=== PATIENT | female | born 1970 ===

== ENCOUNTER 2023-04-15 10:33 | Outpatient (AMB) | payer BC, SELFPAY ==
--- NOTE | 2023-04-15 10:34 | A.OFFVIS_ITS ---
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 Previous patient of Dr. Null. Patient reports ongoing pain for many years and it has gotten worse since last year. The patient was seen by Dr. López from Neurosurgery regarding neck pain. No surgery was recommended. The patient is going to start using a home traction device. She describes her right shoulder pain as sharp and severe in nature. She denies any weakness. She has done physical therapy which aggravated her pain. She has also had injections in the past which gave her minimal relief. She has tried Tylenol and anti-inflammatory medicines which gave her only mild relief. Allergies No Known Allergies Allergy (Verified 04/15/23 10:40) Medication List - Last Reconciled 04/15/23 by Hiram Null MD escitalopram oxalate 20 mg PO DAILY [facility] Social History (Updated 04/15/23 @ 10:41 by Clare Juan) Alcohol intake: never Patient Tobacco Use Status: Never used Tobacco Current occupation: right hand dominant Physical Exam Vital Signs: BMI result Body Mass Index 20.6 Const Other: Well-nourished well-developed very friendly female awake alert and oriented x3 in no acute distress Extrem Other: Bilateral upper extremity examination shows good capillary refill, no skin lesions noted, normal sensation light touch Right shoulder examination shows decreased active and passive range of motion when compared to her left shoulder, positive impingement signs, tenderness over her acromioclavicular joint, no instability Results Reviewed Results Reviewed: X-rays of the patient's right shoulder show severe acromioclavicular joint narrowing, a type 3 acromion, no acute bony abnormalities MRI of the patient's right shoulder shows severe acromioclavicular joint narrowing, type 3 acromion, signal change within the supraspinatus tendon most likely due to adhesive capsulitis Assessment & Plan Assessment & Plan (1) Impingement of right shoulder: Code(s): M25.811 - Other specified joint disorders, right shoulder Plan Ms. Disla presents with progressively worsening right shoulder pain and stiffness due to impingement syndrome, acromioclavicular joint arthritis and his capsulitis. I had a lengthy discussion with the patient regarding the treatment options. At this point she has failed continued non operative treatments. The risks and benefits of right shoulder surgery were discussed at length with the patient. The patient wishes proceed. Surgery will most likely involve right shoulder diagnostic arthroscopy with distal clavicle excision, acromioplasty, anterior capsular release and manipulation under anesthesia. Patient will contact my office to pick a surgery date. She will continue with her home stretching program in the meantime to prevent further stiffness. Feel free to call me at any time should questions regarding her orthopedic management arise. I spent 22 minutes in reviewing the patient's records and imaging studies, seeing the patient and documenting in the medical record. Coding Level of Care Code Est Pt Level 2 (68691) Diagnoses Impingement of right shoulder M25.811
[2023-04-15 10:39] VITALS: BMI 20.6
== END 2023-04-15 11:15 | disposition home or self-care (01) ==
LOC: HO.HOS 10:33
PROVIDERS: PCP Internal Medicine; Visit Provider Orthopaedic Surgery
DX: M25.811 Other specified joint disorders, right shoulder (principal)
CPT/HCPCS: 99212

== ENCOUNTER → 2023-04-15 10:33 | Outpatient (BNVA) | payer BC, SELFPAY | PROVIDERS: PCP Internal Medicine; Visit Provider Orthopaedic Surgery ==

== ENCOUNTER 2023-05-28 07:46 | Outpatient (REF) | payer BC, SELFPAY ==
--- NOTE | ~2023-05-28 | XR_ITS ---
EXAMINATION: XR SHOULDER, RIGHT CLINICAL INFORMATION: Other specified shoulder disorders. COMPARISON: None available. TECHNIQUE: AP neutral and scapula Y views of the right shoulder are submitted. FINDINGS: The bones and soft tissues are normal. No fracture. Glenohumeral and acromioclavicular alignment is anatomic with normal joint space. No abnormal soft tissue calcifications. XR/XR shoulder RT min 2V IMPRESSION: Normal right shoulder.
== END 2023-05-28 07:47 | disposition home or self-care (01) ==
LOC: HO.HOSX 07:46
PROVIDERS: Visit Provider Orthopaedic Surgery
DX: M25.811 Other specified joint disorders, right shoulder (principal)
CPT/HCPCS: 73030

== ENCOUNTER 2023-05-28 09:28 | Outpatient (AMB) | payer BC, SELFPAY ==
--- NOTE | 2023-05-28 09:31 | MHC.OFFVIS ---
Intake Intake Visit Reasons: Pre-Rt Shoulder Intake Note: Vivienne is a 52 year old right hand dominant female who presents today for evaluation of the right shoulder. Previous patient of Dr. Null. Patient reports ongoing pain for many years and it has gotten worse since last year. The patient was seen by Dr. López from Neurosurgery regarding neck pain. No surgery was recommended. The patient is going to start using a home traction device. She describes her right shoulder pain as sharp and severe in nature. She denies any weakness. She has done physical therapy which aggravated her pain. She has also had injections in the past which gave her minimal relief. She has tried Tylenol and anti-inflammatory medicines which gave her only mild relief. Allergies No Known Allergies Allergy (Verified 05/28/23 09:36) Medication List - Last Reconciled 05/28/23 by Hiram Null MD escitalopram oxalate 20 mg PO DAILY [id number]-pbdqyzc 25,000-79,000- 105,000 unit (Zenpep) 1 cap PO QID PFSH Social History Alcohol intake: never Patient Tobacco Use Status: Never used Tobacco Current occupation: right hand dominant Physical Exam Const Other: Well-nourished well-developed very friendly female awake alert and oriented x3 in no acute distress Lungs clear to auscultation bilaterally with symmetric expansion Cardiovascular exam regular rate rhythm Abdominal exam is soft nontender nondistended Extrem Other: Bilateral upper extremity examination shows good capillary refill, no skin lesions noted, normal sensation light touch Right shoulder examination shows decreased range of motion when compared to her left shoulder, pain with range of motion, positive impingement signs, 5/5 strength with supraspinatus testing, tenderness over her acromioclavicular joint, no instability Results Reviewed Results Reviewed: X-rays of the patient's right shoulder show severe acromioclavicular joint narrowing, a type 2 acromion, no acute bony abnormalities Assessment & Plan Assessment & Plan (1) Impingement of right shoulder: Code(s): M25.811 - Other specified joint disorders, right shoulder Plan: Ms. Shannon presents with right shoulder pain and stiffness due to impingement syndrome, acromioclavicular joint arthritis and adhesive capsulitis. I had a lengthy discussion with the patient regarding the treatment options. At this point she has failed continued non operative treatments. The risks and benefits of right shoulder surgery were discussed at length with the patient. The patient wishes to proceed with surgery. Surgery will most likely involve right shoulder diagnostic arthroscopy with distal clavicle excision, acromioplasty, capsular release and manipulation under anesthesia. The patient was given a prescription for Vicodin at her preoperative appointment. I will see her back 2-3 weeks following her surgery for her 1st postoperative appointment. Feel free to call me at any time should questions regarding her orthopedic management arise. I spent 22 minutes in reviewing the patient's records and imaging studies, seeing the patient and documenting in the medical record. Orders: Orders XR shoulder RT min 2V Today M25.811 - Other specified joint disorders, right shoulder Medications: New hydrocodone-acetaminophen 5-300 mg Partial Fill upon patient request. 1 - 2 tabs PO Q4H PRN 40 tabs 0RF pain Coding Level of Care Code Est Pt Level 2 (36801) Diagnoses Impingement of right shoulder M25.811
== END 2023-05-28 10:03 | disposition home or self-care (01) ==
LOC: HO.HOS 09:28
PROVIDERS: PCP Internal Medicine; Visit Provider Orthopaedic Surgery
DX: M25.811 Other specified joint disorders, right shoulder (principal)
CPT/HCPCS: 99212

== ENCOUNTER 2023-06-05 09:48 | Day surgery (SDC) | payer BC, SELFPAY ==
[2023-06-05] VITALS (9 sets, daily range): BP systolic 98–123; BP diastolic 50–82; PULSE 45–55; RESP 14–18; TEMP 36.1–36.8; O2SAT 96–98; BMI 21.5
--- NOTE | 2023-06-05 10:45 | HO.ANESPROP2 ---
HPI - Anesthesia Eval Consult details Narrative: shoulder arthroscopy PMFSH Active Problems Active Problems: All Active Problems (Updated 06/05/23 @ 10:09 by Abbie Carroll) Impingement of right shoulder (Acute) Past Medical History Medical History (Updated 06/05/23 @ 10:09 by Abbie Carroll) Bradycardia Family History Family history of problems with anesthesia: No Surgical History Surgical History (Updated 06/05/23 @ 10:08 by Abbie Carroll) Previous section H/O discectomy H/O knee surgery History of Problems with Anesthesia: No Social History Social History Alcohol intake: never Patient Tobacco Use Status: Never used Tobacco Use of substances other than those prescribed or required for medical reasons: No Are you DNR?: No Advance Directives: No Advance Directives Information Provided: Yes Current occupation: right hand dominant Meds Allergies Allergy/AdvReac Type Severity Reaction Status Date / Time No Known Allergies Allergy Verified 06/05/23 10:06 Home Medications Medication Instructions Recorded Confirmed Last Taken Type escitalopram oxalate 20 mg tablet 20 mg PO DAILY 04/15/23 06/05/23 06/05/23 History [id number] 1 cap PO QID 05/28/23 06/05/23 Unknown History 25,000-79,000-105,000 unit capsule,delayed rel (Zenpep) Exam Exam Date and Time: June 05, 2023 1045 Height,Weight and Vital Signs: Height 5 ft 4 in Weight 56.699 kg Last Vital Signs Temp 98.2 F 06/05/23 10:26 Pulse 53 06/05/23 10:26 Resp 14 06/05/23 10:26 BP 112/77 06/05/23 10:26 Pulse Ox 98 06/05/23 10:26 O2 Del Method Room Air 06/05/23 10:26 Airway Mallampati Class: II TM Dist: >3cm Heart: rrr Lungs: cta Assessment and Plan Assessment Anesthesia Assessment: Anesthesia Plan Discussed and Chart Reviewed Final Anesthetic Review Family History of Problems with Anesthesia: No History of Problems with Anesthesia: No NPO: Yes ASA Class: II Final Preanesthetic Review: No Changes in Pt Med Stat, Meds/Allgs Chart Reviewed, Consent Obtained/Reviewed and Anes Risks/Benef Reviewed Patient Risk: Low Procedure Risk: Intermediate Anesthetic Plan Anesthetic Plan: GA, Regional Block and Agree w/ Assess. and Plan Disposition: Standard PACU
--- NOTE | 2023-06-05 13:48 | PM.OP ---
Brief Operative Note Date of Service: 06/05/23 Pre-op diagnosis: Right shoulder acromioclavicular joint arthritis, right shoulder impingement syndrome, right shoulder adhesive capsulitis Post-op diagnosis: same Procedure: right shoulder diagnostic arthroscopy with arthroscopic distal clavicle excision, acromioplasty, anterior capsular release, manipulation under anesthesia Implants: none Surgeon: Hiram Null MD Anesthesia: GLMA and regional Was an Defensive Secondary Coach used for this Procedure?: No Estimated blood loss (mL): 10 Pathology: none sent Condition: stable Disposition: PACU
--- NOTE | 2023-06-05 13:49 | W.PM.OPN ---
Operative Note Operative Note Date of Service: 06/05/23 Narrative: After the patient was identified as Vivienne Shannon and their right shoulder was initialed by myself the patient was brought to the holding area where a right shoulder interscalene regional block was performed by the anesthesiologist in routine fashion. The patient was then brought to the operating room where general anesthesia was induced by the anesthesiologist in routine fashion. The patient was given 2 g of IV Ancef preoperatively for infection prophylaxis. Examination under anesthesia of the patient's right shoulder showed decreased passive range of motion when compared to the left shoulder. The patient's right shoulder had passive forward flexion to 130 degrees compared to 170 degrees, external rotation to 30 degrees compared to 60 degrees, and internal rotation to 40 degrees compared to 50 degrees. The patient was gently positioned in the beach chair position with all bony prominences well padded. The patient's right shoulder region and upper extremity were prepped and draped in sterile fashion. A formal time-out was completed. A #11 scalpel blade was used to make a posterior portal 2 cm inferior and 1 cm medial to the posterolateral corner of the acromion. Blunt trocar technique was used to enter the glenohumeral joint in routine fashion. An anterior portal was made just lateral to the coracoid process after proper positioning was confirmed using a spinal needle. Diagnostic arthroscopy showed minimal degenerative changes of the glenoid and humeral head articular surfaces. There was no evidence of rotator cuff tearing. There was no evidence of injury to the biceps tendon or its insertion onto the glenoid. There was inflammation of the anterior joint capsule consistent with adhesive capsulitis. The ArthroCare Wand was then used to perform an anterior capsular release between the inferior border of the biceps tendon and the superior border of the subscapularis tendon. The arthroscope was then placed from the posterior portal into the subacromial space. A lateral portal was made 2 fingerbreadths lateral to the anterior lateral corner of the acromion. The ArthroCare Wand was used to ablate soft tissues along the undersurface of the acromion as well as to excise the coracoacromial ligament. There was a sharp spur along the undersurface of the acromion which was removed using the hooded bur. The arthroscope was then placed into the lateral portal and the acromioplasty was completed with the bur in the posterior portal using the posterior aspect of the acromion as a cutting block. The ArthroCare Wand was then brought in through the anterior portal and was used to ablate soft tissues along the acromioclavicular joint and distal clavicle. The posterior and superior ligamentous structures were left intact. A distal clavicle excision of 8 mm was performed using the fluted bur. Any remaining bursal tissue was removed using the arthroscopic shaver. The subacromial space was irrigated and then drained. All arthroscopic instruments were removed. A gentle manipulation under anesthesia was then performed. Full passive range of motion was easily obtained. The 3 portals were closed with 3-0 nylon interrupted suture. The subacromial space was injected with Marcaine. Dry sterile dressing was placed over all incisions. The patient's right upper extremity was placed into a sling. The patient was awoken and extubated in the operating room. The patient was transferred to the recovery room in stable condition.
== END 2023-06-05 15:43 | disposition home or self-care (01) ==
LOC: HO.SSS 09:49
PROVIDERS: PCP Internal Medicine; Visit Provider Orthopaedic Surgery
PROC: (CPT 29805; principal; 2023-06-05 11:20)
DX: M75.41 Impingement syndrome of right shoulder (principal); M75.01 Adhesive capsulitis of right shoulder; M19.011 Primary osteoarthritis, right shoulder; M25.811 Other specified joint disorders, right shoulder; Z79.899 Other long term (current) drug therapy
CPT/HCPCS: 29824; 29825; 29822; J0131; J0690; J0696; J1100; J1790; J1885; J2405

== ENCOUNTER → 2023-06-05 09:48 | Outpatient (BNV) | payer BC, SELFPAY | PROVIDERS: PCP Internal Medicine; Visit Provider Orthopaedic Surgery | DX: M75.31 Calcific tendinitis of right shoulder (principal); M19.011 Primary osteoarthritis, right shoulder | CPT/HCPCS: 29824; 29825 ==

== ENCOUNTER 2023-06-18 11:14 | Outpatient (AMB) | payer BC, SELFPAY ==
--- NOTE | 2023-06-18 11:23 | MHC.OFFVIS ---
Intake Intake Visit Reasons: PO-Rt Shld 06/05 DR Intake Note: Vivienne 52 yr old right hand dominant female presents today for her P/O visit for right shoulder sx from 06/05/[address] Null. Patient states she removed her dressing at home and is doing well. She is no longer taking Vicodin. She takes ibuprofen gives her fairly good relief. She has been doing gentle range of motion exercises on her own. Allergies No Known Allergies Allergy (Verified 06/18/23 11:28) Medication List - Last Reconciled 06/18/23 by Hiram Null MD escitalopram oxalate 20 mg PO DAILY [id number]-[id number]-faqutrw 25,000-79,000- 105,000 unit (Zenpep) 1 cap PO QID oxycodone ER (OxyContin) 10 mg PO Q12H PFSH Medical History (Updated 06/18/23 @ 11:47 by Hiram Null MD) Bradycardia Surgical History (Updated 06/05/23 @ 10:08 by Abbie Carroll) Previous section H/O discectomy H/O knee surgery Social History Alcohol intake: never Patient Tobacco Use Status: Never used Tobacco Current occupation: right hand dominant Physical Exam Extrem Other: Right shoulder examination shows incisions are healing well, no erythema, slightly decreased range of motion when compared to her left shoulder, minimal discomfort with resisted forward flexion Assessment & Plan Assessment & Plan (1) Right shoulder pain: Code(s): M25.511 - Pain in right shoulder Plan: Mrs. Shannon is doing well after undergoing right shoulder arthroscopic surgery on 06/05/2023. Her sutures were removed and Steri-Strips placed over her incisions. I did give her a prescription to go to formal physical therapy for range of motion exercises with gradual progression to gentle strengthening exercises. The do's and don'ts of lifting were discussed at length with the patient. She will contact me prior to her follow-up appointment in 6 weeks should any questions or concerns arise. Feel free to call me at any time should questions regarding her orthopedic management arise. Orders: Orders PT Evaluation and Treatment Today M25.511 - Pain in right shoulder Coding Level of Care Code Global (49107) Diagnoses Right shoulder pain M25.511
== END 2023-06-18 11:55 | disposition home or self-care (01) ==
PROVIDERS: PCP Internal Medicine; Visit Provider Orthopaedic Surgery
DX: M25.511 Pain in right shoulder (principal)
CPT/HCPCS: 99024

== ENCOUNTER → 2023-06-18 11:14 | Outpatient (BNVA) | payer BC, SELFPAY | PROVIDERS: PCP Internal Medicine; Visit Provider Orthopaedic Surgery ==